=== PATIENT | female | born 1965 | race Caucasian/White ===

== ENCOUNTER 2016-03-20 18:44 | Emergency (ER) | payer OTHER ==
[2016-03-20 18:56] VITALS: BP 152/97; PULSE 70; TEMP 97.5; BMI 23.8
--- NOTE | 2016-03-20 19:01 | PDOC ---
History of Present Illness - General History Source: Patient Exam Limitations: No Limitations - History of Present Illness Initial Comments: 03/20/16 19:10 The patient is a 50 year old female, with no significant past medical history, who presents to the emergency department with left wrist pain and swelling s/p a mechanical trip and fall in her house earlier this evening. The patient states that she got home from work and was wearing her work heels when she tripped on the leg of her pantsuit. She reports that she fell forward and landed on her left arm. She denies any head trauma or LOC. The patient reports taking 2 Tylenol, with no relief. The patient denies any extremity numbness or tingling. PAST MEDICAL HISTORY: See HPI. PAST SURGICAL HISTORY: No significant history. FAMILY HISTORY: No pertinent history. SOCIAL HISTORY: Patient lives with family and is employed. MEDICATIONS: Reviewed. ALLERGIES: As per nursing notes. Adult ROS: General: No fevers or chills, no weakness, no weight loss. HEENT: No change in vision. No sore throat. No ear pain. CardioVascular: No chest pain or shortness of breath. Respiratory: No cough, or wheezing. Gastrointestinal: No nausea, vomiting, diarrhea or constipation, no rectal bleeding. Genitourinary: No dysuria, hematuria, or frequency. Musculoskeletal: +Left wrist pain and swelling. No muscle pain or swelling. Neurologic: No headache, vertigo, dizziness or loss of consciousness. Psychiatric: No depression. Skin: No rashes or easy bruising. Endocrine: No increased thirst or abnormal weight change. Allergic: No skin or latex allergy. All other systems reviewed and normal. Basic Exam: GENERAL: The patient is awake, alert, and fully oriented, in no acute distress. HEAD: Normal with no signs of trauma. EYES: Pupils equal, round and reactive to light, extraocular movements intact, sclera anicteric, conjunctiva clear. EXTREMITIES: There is swelling and deformity over the left wrist with tenderness. Neurovascularly distal intact. ROM not tested secondary to pain and deformity. NEUROLOGICAL: Normal speech, normal gait. PSYCH: Normal mood, normal affect. SKIN: Warm, dry, normal turgor, no rashes or lesions noted. <GladstoneMontserrat Ortega - Last Filed: 03/20/16 19:28> - General History Source: Patient Exam Limitations: No Limitations - History of Present Illness Initial Comments: 03/20/16 19:32 A portion of this note was documented by scribe services under my direction. I have reviewed the details of the note, within reason, and agree with the documentation. The case summary and management plan written by me. X-ray minimally displaced distal radius fracture Assessment and plan: This is a 50-year-old female who sustained a mechanical trip and fall in her home patient landed on her outstretched left hand resulting in a minimally displaced fracture of the distal radius. A metallic wrist splint was placed and patient was put in a sling Patient given referral to the orthopedist follow-up with tomorrow Prescription for Percocet was sent to patient's pharmacy. <Shruti James I - Last Filed: 03/20/16 19:36> - General Chief Complaint: Injury Stated Complaint: LEFT WRIST INJURY S/P FALL Time Seen by Provider: 03/20/16 19:00 Past History <Montserrat Guajardo - Last Filed: 03/20/16 19:28> - Past Medical History Other medical history: PT DENIES - Psycho/Social/Smoking Cessation Hx Anxiety: No Suicidal Ideation: No Smoking History: Never smoked Information on smoking cessation initiated: No Hx Alcohol Use: No Drug/Substance Use Hx: No Substance Use Type: None <Shruti James I - Last Filed: 03/20/16 19:36> - Past Medical History Allergies/Adverse Reactions: Allergies Allergy/AdvReac Type Severity Reaction Status Date / Time No Known Allergies Allergy Verified 03/20/16 18:46 Home Medications: Ambulatory Orders Oxycodone HCl/Acetaminophen [Percocet 5-325 mg Tablet] 1 - 2 tab PO Q4H #20 tablet MDD 8 03/20/16 *Physical Exam - Vital Signs Last Vital Signs Temp Pulse Resp BP Pulse Ox 97.5 F L 70 18 152/97 100 03/20/16 18:47 03/20/16 18:47 03/20/16 18:47 03/20/16 18:47 03/20/16 18:47 <Montserrat Guajardo - Last Filed: 03/20/16 19:28> - Vital Signs Last Vital Signs Temp Pulse Resp BP Pulse Ox 97.5 F L 70 18 152/97 100 03/20/16 18:47 03/20/16 18:47 03/20/16 18:47 03/20/16 18:47 03/20/16 18:47 <Shruti James I - Last Filed: 03/20/16 19:36> ED Treatment Course - Medications Given in the ED: ED Medications Discontinued Medications Generic Name Dose Route Start Last Admin Trade Name Raheem PRN Reason Stop Dose Admin Oxycodone/Acetaminophen 1 combo 03/20/16 19:02 03/20/16 19:08 Percocet 5/325 - PO 03/20/16 19:03 1 combo ONCE ONE Administration <Montserrat Guajardo - Last Filed: 03/20/16 19:28> Medical Decision Making - Medical Decision Making 03/20/16 19:29 EXAM: RAD/WRIST LEFT Reviewed By: Dr. Tony Azul IMPRESSION: Fracture distal radius. <Montserrat Guajardo - Last Filed: 03/20/16 19:28> *DC/Admit/Observation/Transfer - Attestations Scribe Attestion: 03/20/16 19:10 Documentation prepared by Montserrat Guajardo, acting as medical laboratory technical officer for Shruti James MD. <Montserrat Guajardo - Last Filed: 03/20/16 19:28> <Shruti James I - Last Filed: 03/20/16 19:36> Diagnosis at time of Disposition: Fracture of distal end of left radius Qualifiers: Encounter type: initial encounter Fracture type: closed Fracture morphology: unspecified fracture morphology Qualified Code(s): S52.502A - Unspecified fracture of the lower end of left radius, initial encounter for closed fracture - Discharge Dispostion Disposition: HOME Condition at time of disposition: Fair - Prescriptions Prescriptions: Oxycodone HCl/Acetaminophen [Percocet 5-325 mg Tablet] 1 - 2 tab PO Q4H #20 tablet MDD 8 - Patient Instructions Printed Discharge Instructions: How to Use a Sling Additional Instructions: Keep your wrist in the splint and wear the sling while awake. U do not need to wear the sling in bed at night so you don't get twisted up in it. For pain take ibuprofen 3 tablets 3 times a day with food don't take on an empty stomach if he needs something stronger I have sent a prescription for Percocet to your pharmacy. The Percocet will make you constipated and drowsy so try to limit it as much as possible if you do take the Percocet you cannot drive or do anything that requires your concentration such as going to work. You need to follow-up with an orthopedist in the morning and get an appointment so you can have the wrist put in this cast. Call Dr. Ty at [phone] for an appointment his office is here in the hospital one floor below the emergency room. Return to the emergency department immediately with ANY new, persistent or worsening symptoms. Continue any medications as previously prescribed by your physician. You should follow up with your primary doctor as soon as possible regarding today's emergency department visit. . Please make sure your doctor reviews the results of your emergency evaluation. Thank you for coming to the Emergency Department today for your care. It was a pleasure to see you today. Please note that your evaluation is INCOMPLETE until you follow-up with your doctor. - Post Discharge Activity Work/School Note: Back to Work
[2016-03-20] MEDS ORDERED: OXYCODONE/APAP 5/325MG COMBO TABLET PO ONE (19:02)
[2016-03-20] MEDS ORDERED: OXYCODONE/APAP 5/325MG COMBO TABLET ONE (19:03)
== END 2016-03-20 19:40 | disposition home or self-care (01) ==
LOC: FER 18:44
PROC: 2W3FX1Z Immobilization of Left Hand using Splint (ICD-10-PCS; principal; 2016-03-20)
DX: S52.502A Unspecified fracture of the lower end of left radius, initial encounter for closed fracture (principal); W18.39XA Other fall on same level, initial encounter; Y93.89 Activity, other specified; Y92.9 Unspecified place or not applicable
CPT/HCPCS: 73110-TC-LT; 99282-25

== ENCOUNTER 2019-03-22 21:48 | Emergency (ER) | payer BC, OTHER ==
[2019-03-22 22:00] VITALS: BP 149/100; PULSE 75; TEMP 97.1; BMI 23.8
[2019-03-22] MEDS ORDERED: ONDANSETRON *ODT* 4 MG TABLET SL ONE (22:17)
[2019-03-22] MEDS ORDERED: MECLIZINE HCL 25 MG TABLET (FP) PO ONE (22:18)
[2019-03-22] MEDS ORDERED: ONDANSETRON *ODT* 4 MG TABLET ONE (22:21)
[2019-03-22] MEDS ORDERED: MECLIZINE HCL 25 MG TABLET (FP) ONE (22:21)
[2019-03-22 22:41] LABS: BASO % 0.4 % (0-2.0); EOS % 0.3 % (0-4.5); HEMATOCRIT 42.8 % (32.4-45.2); HEMOGLOBIN 14.4 GM/dl (10.7-15.3); LYMPH % 24.6 % (8-40); MCH 31.5 pg (25.7-33.7); MCHC 33.5 g/dl (32.0-36.0); MEAN CELL VOLUME 93.9 fl (80-96); MEAN PLT VOLUME 7.5 fl (7.5-11.1); NEUT % 71.7 % (42.8-82.8); PLATELET COUNT 284 K/MM3 (134-434); RBC 4.56 M/mm3 (3.60-5.2); RDW 13.4 % (11.6-15.6); WHITE BLOOD COUNT 9.1 K/mm3 (4.0-10.8)
[2019-03-22 22:59] LABS: ALBUMIN 4.2 g/dl (3.4-5.0); BILIRUBIN,TOTAL 1.1 mg/dl (0.2-1); CALCIUM 9.1 mg/dl (8.5-10); CREATININE 0.6 mg/dl (0.55-1.3); POTASSIUM 3.6 mmol/L (3.5-5.1); TOT PROT 6.6 g/dl (6.4-8.2)
--- NOTE | 2019-03-22 23:49 | PDOC ---
*Physical Exam - Vital Signs Last Vital Signs Temp Pulse Resp BP Pulse Ox 97.1 F L 75 16 149/100 99 03/22/19 21:49 03/22/19 21:49 03/22/19 21:49 03/22/19 21:49 03/22/19 21:49 ED Treatment Course - LABORATORY CBC & Chemistry Diagram: 03/22/19 22:35 03/22/19 22:35 - ADDITIONAL ORDERS Additional order review: Laboratory Results 03/22/19 03/22/19 03/22/19 22:35 22:35 22:35 Sodium 132 L Potassium 3.6 Chloride 99 Carbon Dioxide 26 Anion Gap 7 L BUN 14.0 Creatinine 0.6 Est GFR (CKD-EPI)AfAm 119.77 Est GFR (CKD-EPI)NonAf 103.34 Random Glucose 128 H Calcium 9.1 Total Bilirubin 1.1 H AST 17 ALT 19 Alkaline Phosphatase 70 Creatine Kinase 61 Troponin I < 0.03 Total Protein 6.6 Albumin 4.2 Urine Color Yellow Urine Appearance Clear Urine pH 7.0 Urine Protein Trace Urine Glucose (UA) Negative Urine Ketones Negative Urine Blood Negative Urine Nitrite Negative Urine Bilirubin Negative Urine Urobilinogen 0.2 Ur Leukocyte Esterase Negative 03/22/19 22:35 RBC 4.56 MCV 93.9 MCHC 33.5 RDW 13.4 MPV 7.5 Neutrophils % 71.7 Lymphocytes % 24.6 Monocytes % 3.0 L Eosinophils % 0.3 Basophils % 0.4 - Medications Given in the ED: ED Medications Discontinued Medications Generic Name Dose Route Start Last Admin Trade Name Freq PRN Reason Stop Dose Admin Meclizine HCl 25 mg 03/22/19 22:18 03/22/19 22:28 Antivert - PO 03/22/19 22:19 25 mg ONCE ONE Administration Ondansetron HCl 4 mg 03/22/19 22:17 03/22/19 22:23 Zofran Odt - SL 03/22/19 22:18 4 mg ONCE ONE Administration ED Progress Note - Progress Note Progress Note: Care of this patient received from . Noncontrast head CT negative for acute pathology. Results discussed with the patient. Patient continues to feel markedly improved after meclizine/Zofran. Patient will be discharged with prescriptions for meclizine/ondansetron sent to pharmacy as per Dr. Hughes. She should plan on following up with her general medical doctor within the next 2 to 3 days. If she has any recurrent severe vertigo or nausea/vomiting, she should return to the ER Discharge - Discharge Information Problems reviewed: Yes Clinical Impression/Diagnosis: Labyrinthitis Condition: Improved Disposition: HOME - Additional Discharge Information Prescriptions: Meclizine HCl [Antivert -] 25 mg PO TID PRN #20 tablet PRN Reason: Vertigo Ondansetron [Zofran *Odt*] 4 mg SL TID PRN #12 od.tablet PRN Reason: Nausea - Follow up/Referral Referrals: Violeta Gaming [Primary Care Provider] - - Patient Discharge Instructions Patient Printed Discharge Instructions: Labyrinthitis Additional Instructions: Rest, drink plenty of fluids Meclizine 25mg up to 3 X a day for vertigo Zofran ODT 4 mg up to 3 times a day as needed for nausea Return to ER if you have recurrent, persistent symptoms Follow-up with your general medical doctor within the next 2 to 3 days - Post Discharge Activity
--- NOTE | 2019-03-23 09:42 | PDOC ---
Documentation entered by Kailee Moraes SCRIBE, acting as scribe for Keith Rodriguez MD. Keith Rodriguez MD: This documentation has been prepared by the Dimitry portillo Xhesika, SCRIBE, under my direction and personally reviewed by me in its entirety. I confirm that the documentation accurately reflects all work, treatment, procedures, and medical decision making performed by me. History of Present Illness - General Chief Complaint: Lightheaded Stated Complaint: DIZZINESS Time Seen by Provider: 03/22/19 22:02 History Source: Patient Exam Limitations: No Limitations - History of Present Illness Initial Comments: 03/22/19 22:20 The patient is a 53 year old female with no significant PMH who presents to the emergency department for lightheadedness and nausea since 11am. The patient states she has been sitting down all day because as soon as she gets up she feels nauseous and unsteady on her feet. Pt reports associated hand numbness/ heaviness and vomiting when standing and after eating. Pt states her lightheadedness is worsened with changing positions. Pt denies room spinning dizziness. 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 The patient denies chest pain, shortness of breath. Denies fever, chills, cough , nausea, vomiting, diarrhea and constipation. Allergies: NKDA Past History - Past Medical History Allergies/Adverse Reactions: Allergies Allergy/AdvReac Type Severity Reaction Status Date / Time No Known Allergies Allergy Verified 03/20/16 18:46 Home Medications: Ambulatory Orders Meclizine HCl [Antivert -] 25 mg PO TID PRN #20 tablet 03/22/19 Ondansetron [Zofran *Odt*] 4 mg SL TID PRN #12 od.tablet 03/22/19 COPD: No - Psycho Social/Smoking Cessation Hx Smoking History: Never smoked Hx Alcohol Use: No Drug/Substance Use Hx: No Substance Use Type: None Review of Systems - Review of Systems Able to Perform ROS?: Yes Comments:: 03/22/19 22:26 GENERAL/CONSTITUTIONAL: No fever or chills. No weakness. HEAD, EYES, EARS, NOSE AND THROAT: No change in vision. No ear pain or discharge. No sore throat. CARDIOVASCULAR: No chest pain or shortness of breath. RESPIRATORY: No cough, wheezing, or hemoptysis. GASTROINTESTINAL: +nausea, vomiting. No diarrhea or constipation. GENITOURINARY: No dysuria, frequency, or change in urination. MUSCULOSKELETAL: No joint or muscle swelling or pain. No neck or back pain. SKIN: No rash NEUROLOGIC: +lightheadedness. +hand numbness/heaviness. No headache, vertigo, loss of consciousness ENDOCRINE: No increased thirst. No abnormal weight change. HEMATOLOGIC/LYMPHATIC: No anemia, easy bleeding, or history of blood clots. ALLERGIC/IMMUNOLOGIC: No hives or skin allergy. *Physical Exam - Vital Signs Last Vital Signs Temp Pulse Resp BP Pulse Ox 97.1 F L 75 16 149/100 99 03/22/19 21:49 03/22/19 21:49 03/22/19 21:49 03/22/19 21:49 03/22/19 21:49 - Physical Exam 03/22/19 22:28 GENERAL: Awake, alert, and fully oriented, in no acute distress. Vital signs normal except for minimal elevation of blood pressure, probably due to stress of the ER visit. HEAD: No signs of trauma. EYES: +decreased prominence venous pulsations of central disk. +blurring of disk margins R>L. +mild dizziness with head movements and change of position but no smith vertigo. extra-ocular movements intact. Visual lopez intact to confrontation sclera anicteric, conjunctiva clear. ENT: Auricles normal inspection, hearing grossly normal, nares patent, oropharynx clear without exudates. Moist mucosa NECK: Normal ROM, supple, no lymphadenopathy, JVD, or masses LUNGS: Breath sounds equal, clear to auscultation bilaterally. No wheezes, and no crackles HEART: Regular rate and rhythm, normal S1 and S2, no murmurs, rubs or gallops ABDOMEN: Soft, nontender, normoactive bowel sounds. No guarding, no rebound. No masses EXTREMITIES: Normal range of motion, no edema. No clubbing or cyanosis. No cords, erythema, or tenderness NEUROLOGICAL: Cranial nerves II through XII grossly intact. Normal speech. Strength full and symmetric. No focal sensory or motor deficits. Cerebellar intact. Gait stable and unimpaired. SKIN: Warm, Dry, normal turgor, no rashes or lesions noted. 03/23/19 09:38 ED Treatment Course - LABORATORY CBC & Chemistry Diagram: 03/22/19 22:35 03/22/19 22:35 - ADDITIONAL ORDERS Additional order review: Laboratory Results 03/22/19 03/22/19 03/22/19 22:35 22:35 22:35 Sodium 132 L Potassium 3.6 Chloride 99 Carbon Dioxide 26 Anion Gap 7 L BUN 14.0 Creatinine 0.6 Est GFR (CKD-EPI)AfAm 119.77 Est GFR (CKD-EPI)NonAf 103.34 Random Glucose 128 H Calcium 9.1 Total Bilirubin 1.1 H AST 17 ALT 19 Alkaline Phosphatase 70 Creatine Kinase 61 Troponin I < 0.03 Total Protein 6.6 Albumin 4.2 Urine Color Yellow Urine Appearance Clear Urine pH 7.0 Urine Protein Trace Urine Glucose (UA) Negative Urine Ketones Negative Urine Blood Negative Urine Nitrite Negative Urine Bilirubin Negative Urine Urobilinogen 0.2 Ur Leukocyte Esterase Negative 03/22/19 22:35 RBC 4.56 MCV 93.9 MCHC 33.5 RDW 13.4 MPV 7.5 Neutrophils % 71.7 Lymphocytes % 24.6 Monocytes % 3.0 L Eosinophils % 0.3 Basophils % 0.4 - RADIOLOGY Radiology Studies Ordered: Category Date Time Status HEAD CT WITHOUT CONTRAST [CT] Stat CT Scan 03/22/19 22:19 Taken - Medications Given in the ED: ED Medications Discontinued Medications Generic Name Dose Route Start Last Admin Trade Name Freq PRN Reason Stop Dose Admin Meclizine HCl 25 mg 03/22/19 22:18 03/22/19 22:28 Antivert - PO 03/22/19 22:19 25 mg ONCE ONE Administration Ondansetron HCl 4 mg 03/22/19 22:17 03/22/19 22:23 Zofran Odt - SL 03/22/19 22:18 4 mg ONCE ONE Administration Medical Decision Making - Medical Decision Making 03/23/19 09:40 CBC, chemistries, and urinalysis without significant abnormalities EKG normal sinus rhythm, normal axes and intervals, no ST-T wave changes, normal EKG Patient much improved with meclizine and Zofran. Nausea completely resolved. No further vomiting. No further dizziness Results of CT scan of the brain are pending. Signed out to Dr. Amato at 11 PM pending results of CT and further evaluation and treatment. Discharge - Discharge Information Problems reviewed: Yes Clinical Impression/Diagnosis: Labyrinthitis Qualifiers: Laterality: unspecified laterality Qualified Code(s): H83.09 - Labyrinthitis, unspecified ear Condition: Improved Disposition: HOME - Admission No - Additional Discharge Information Prescriptions: Meclizine HCl [Antivert -] 25 mg PO TID PRN #20 tablet PRN Reason: Vertigo Ondansetron [Zofran *Odt*] 4 mg SL TID PRN #12 od.tablet PRN Reason: Nausea - Follow up/Referral Referrals: Violeta Gaming [Primary Care Provider] - - Patient Discharge Instructions Patient Printed Discharge Instructions: Labyrinthitis Additional Instructions: Rest, drink plenty of fluids Meclizine 25mg up to 3 X a day for vertigo Zofran ODT 4 mg up to 3 times a day as needed for nausea Return to ER if you have recurrent, persistent symptoms Follow-up with your general medical doctor within the next 2 to 3 days - Post Discharge Activity
--- NOTE | 2019-03-24 10:26 | EKG ---
Test Reason : Blood Pressure : / mmHG Vent. Rate : 073 BPM Atrial Rate : 073 BPM P-R Int : 126 ms QRS Dur : 090 ms QT Int : 394 ms P-R-T Axes : 052 047 045 degrees QTc Int : 434 ms NORMAL SINUS RHYTHM NORMAL ECG NO PREVIOUS ECGS AVAILABLE Confirmed by Rodríguez Gutierrez ([id number]) on 03/24/2019 10:26:31 AM Referred By: SELMA C[place]AND Confirmed By:Rodríguez Gutierrez
== END 2019-03-22 23:57 | disposition home or self-care (01) ==
LOC: FER 21:48
DX: H83.09 Labyrinthitis, unspecified ear (principal)
CPT/HCPCS: 36415; 70450-TC; 80053; 81003; 82550; 84484; 85025; 93005; 99285-25; Q0162